=== PATIENT | female | born 1950 | race African-American/Black ===

== ENCOUNTER 2018-01-03 05:51 | Observation (INO) | payer OTHER, MEDICAID ==
[2018-01-03] VITALS (7 sets, daily range): BP systolic 136–175; BP diastolic 65–78; PULSE 63–84; RESP 17–20; TEMP 97.6–101.1; O2SAT 95–100
[~2018-01-03] VITALS: Ht 167.6 cm; Wt 65.0 kg
[~2018-01-03 05:51] MED LIST: CLIN150 PO; LORTA5 PO
[2018-01-03] MEDS ORDERED: AMOXICILLIN/CLAVULANATE K 875 MG TAB PO ONE (06:15)
[2018-01-03] MEDS ORDERED: DEXAMETHASONE SOD PHOS 20 MG/5 ML VIAL IV PUSH ONE (06:15)
[2018-01-03] MEDS ORDERED: SODIUM CHLOR 0.9% 1000 ML INJ 1,000 ML IV ONE (06:15)
[2018-01-03] MEDS ORDERED: IBUPROFEN 800 MG TAB PO ONE (06:15)
--- NOTE | 2018-01-03 06:23 | PD ---
HPI Chief Complaint: ENT Complaint Time Seen by Provider: 06:02 Travel History International Travel<30 days: No Contact w/Intl Traveler<30days: No Traveled to known affect area: No History of Present Illness HPI Patient is a 67-year-old female presenting to the emergency department for evaluation of a sore throat. Patient states it started 3 days ago, she has been using [id number] throat lozenges and taking Tylenol. Patient states that it is hard to swallow but denies any dysphasia or drooling. She denies any shortness of breath, chest pain, abdominal pain, nausea, vomiting. Symptom onset was gradual, symptoms are moderate in nature. No alleviating factors. Patient denies any significant past medical history. PFS Past Medical History Medical History: Denies Significant Hx Diminished Hearing: No Immunizations Current: Yes Tetanus Vaccination: Unknown Influenza Vaccination: No Menopausal: Yes Past Surgical History Surgical History: No Previous Surgery Social History Alcohol Use: No Tobacco Use: Yes (chewing tobacco daily) Substance Use: No Allergies-Medications (Allergen,Severity, Reaction): Coded Allergies: No Known Allergies (Verified , 04/21/15) Reported Meds & Prescriptions Reported Meds & Active Scripts Active No Active Prescriptions or Reported Medications Review of Systems Except as stated in HPI: all other systems reviewed are Neg General / Constitutional: Positive: Fever HENT: Positive: Sore Throat Cardiovascular: No: Chest Pain or Discomfort Respiratory: No: Shortness of Breath Gastrointestinal: No: Nausea, Vomiting, Dysphagia Musculoskeletal: No: Myalgias Physical Exam Narrative GENERAL: Well-developed, well-nourished, alert elderly female. SKIN: Warm and dry. HEAD: Atraumatic. Normocephalic. EYES: Pupils equal and round. No scleral icterus. No injection or drainage. ENT: No nasal bleeding or discharge. Mucous membranes pink and moist. Submandibular lymphadenopathy noted. 1+ tonsillar hypertrophy bilaterally with exudates and erythema noted. Uvula is midline, airway is patent. NECK: Trachea midline. No JVD. CARDIOVASCULAR: Regular rate and rhythm. RESPIRATORY: No accessory muscle use. Clear to auscultation. Breath sounds equal bilaterally. GASTROINTESTINAL: Abdomen soft, non-tender, nondistended. Hepatic and splenic margins not palpable. MUSCULOSKELETAL: Extremities without clubbing, cyanosis, or edema. No obvious deformities. NEUROLOGICAL: Awake and alert. No obvious cranial nerve deficits. Motor grossly within normal limits. Five out of 5 muscle strength in the arms and legs. Normal speech. PSYCHIATRIC: Appropriate mood and affect; insight and judgment normal. Data Data Last Documented VS Vital Signs Date Time Temp Pulse Resp B/P (MAP) Pulse Ox O2 Delivery O2 Flow Rate FiO2 01/03/18 05:57 101.1 84 20 175/78 (110) 97 Room Air Orders Orders Group A Rapid Strep Screen (01/03/18 06:06) Soft Tissue Neck (01/03/18 06:06) Ibuprofen (Motrin) (01/03/18 06:15) Amoxicil-Clavulanate (Augmentin) (01/03/18 06:15) Sodium Chlor 0.9% 1000 Ml Inj (Ns 1000 M (01/03/18 06:15) Dexamethasone Inj (Decadron Inj) (01/03/18 06:15) Complete Blood Count With Diff (01/03/18 06:54) Comprehensive Metabolic Panel (01/03/18 06:54) Ct Soft Tiss Neck W Iv Cont (01/03/18 ) MDM Medical Decision Making Medical Screen Exam Complete: Yes Emergency Medical Condition: Yes Interpretation(s) Vital Signs Date Time Temp Pulse Resp B/P (MAP) Pulse Ox O2 Delivery O2 Flow Rate FiO2 01/03/18 05:57 101.1 84 20 175/78 (110) 97 Room Air Differential Diagnosis Viral syndrome versus strep pharyngitis versus peritonsillar abscess versus other Narrative Course Patient is a 67-year-old female presenting to the emergency room for evaluation of a sore throat. On exam patient has exudates and erythema on bilateral tonsils. Her airway is patent. She has a fever otherwise her vital signs are stable. Patient will be given dexamethasone, IV fluids, ibuprofen and Augmentin at this time. Will obtain an x-ray of the soft tissues of her neck. Will reassess. X-ray of the neck shows soft tissue density identified within the oropharynx, possibly enlarged tonsils extending down to the dislocation and direct visualization suggested. We will obtain a CT of the soft tissues of the neck with IV contrast, CBC and CMP is ordered. Care of patient transferred Jasmin traciets PA the end of my shift, she will determine patient's disposition. Scripts No Active Prescriptions or Reported Meds Alba Greenfield January 03, 2018 06:23
--- NOTE | 2018-01-03 06:47 | RADRPT ---
EXAM DATE: 01/03/2018 6:42 AM EDT AGE/SEX: 67 years / Female INDICATIONS: Sore throat for three days making swallowing painful. CLINICAL DATA: This is the patient's initial encounter. Patient reports that signs and symptoms have been present for 3 days and indicates a pain score of 6/10. MEDICAL/SURGICAL HISTORY: None. None. COMPARISON: No prior exams available for comparison. FINDINGS: Soft tissue density is seen on the lateral projection within the oropharynx above the [place] lecula may be enlarged tonsils extending down to dislocation. The epiglottis and aryepiglottic folds appear intact. There is no prevertebral swelling. CONCLUSION: Soft tissue density identified within the oropharynx possibly enlarged tonsils extending down to this location and direct visualization is suggested. Electronically signed by: Nuria Gao MD 01/03/2018 6:45 AM EDT
[2018-01-03 07:32] LABS: AUTOMATED NEUTROPHIL # 10.3 TH/MM3 (1.8-7.7); BASOPHIL % 0.4 % (0.0-2.0); EOSINOPHIL % 0.3 % (0.0-4.0); HEMATOCRIT 37.6 % (35.0-46.0); HEMOGLOBIN 12.9 GM/DL (11.6-15.3); LYMPH % 9.6 % (9.0-44.0); LYMPHOCYTE # 1.2 TH/MM3 (1.0-4.8); MEAN CELL VOLUME 88.5 FL (80.0-100.0); MEAN CORPUSCULAR HEMOGLOBIN 30.3 PG (27.0-34.0); MEAN CORPUSCULAR HGB CONC 34.3 % (32.0-36.0); NEUT % 81.7 % (16.0-70.0); PLATELET COUNT 182 TH/MM3 (150-450); RED BLOOD COUNT 4.24 MIL/MM3 (4.00-5.30); WHITE BLOOD COUNT 12.6 TH/MM3 (4.0-11.0)
[2018-01-03 07:43] LABS: ALBUMIN 2.9 GM/DL (3.4-5.0); ALT (GPT) 17 U/L (10-53); AST (GOT) 13 U/L (15-37); BLOOD UREA NITROGEN 10 MG/DL (7-18); CHLORIDE 106 MEQ/L (98-107); CREATININE 1.06 MG/DL (0.50-1.00); GLOMERULAR FILTRATION RATE 63 ML/MIN (>89); GLUCOSE,RANDOM 139 MG/DL (74-106); SODIUM (NA) 139 MEQ/L (136-145)
[2018-01-03 07:46] LABS: ALKALINE PHOSPHATASE 72 U/L (45-117); TOTAL BILIRUBIN ADULT 0.5 MG/DL (0.2-1.0); TOTAL PROTEIN 7.2 GM/DL (6.4-8.2)
[2018-01-03] MEDS ORDERED: IOHEXOL 350 MG/ML 10 ML VIAL (for RAD DIAG) IVCONTRAST ONE (08:27)
--- NOTE | 2018-01-03 08:44 | RADRPT ---
EXAM DATE: 01/03/2018 8:30 AM EDT AGE/SEX: 67 years / Female INDICATIONS: Sore throat, evaluate for abscess. CLINICAL DATA: This is the patient's initial encounter. Patient reports that signs and symptoms have been present for 3 days and indicates a pain score of 4/10. MEDICAL/SURGICAL HISTORY: None. None. RADIATION DOSE: 16.27 CTDI (mGy) COMPARISON: [facility] – [place], CT SOFT TISSUE NECK W CONTRAST, 04/21/2015. . TECHNIQUE: Helical acquisition was performed using a multirow detector CT scanner during the adminis tration of 50 ml Omnipaque 350 (iohexol) nonionic water-soluble contrast as a single exam dose. Usi ng automated exposure control and adjustment of the mA and/or kV according to patient size, radiation dose was kept as low as reasonably achievable to obtain optimal diagnostic quality images. FINDINGS: Nasopharynx: The nasopharyngeal airway has a normal configuration. No mucosal thickening or mass is seen. Oropharynx: There is a mass in the right peritonsillar region measuring 2.6 x 2.1 cm. Minimal fullne ss in the right vallecula. Larynx: The supraglottic, glottic, and infraglottic structures are intact. Parapharyngeal: The parapharyngeal space is intact. Salivary Glands: The parotid and submandibular glands are intact. Lymph Nodes: Enlarged lymph node submandibular region just posterior to the right submandibular glan d measuring 1.9 x 1.3 cm Thyroid: Homogeneous enhancement without evidence of nodule. Bones: Unremarkable. CONCLUSION: 1. Soft tissue prominence in the right peritonsillar region measuring 2.6 x 2.1 cm. Direct inspectio n/biopsy may be warranted. 2. Prominent lymph node in the right submandibular region measuring 1.9 x 1.3 cm. Electronically signed by: Rafael Silva MD 01/03/2018 8:42 AM EDT
--- NOTE | 2018-01-03 09:07 | PD ---
Physical Exam Date Seen by Provider: January 03, 2018 Narrative 67-year-old female presents emergency department complaining of sore throat for 3 days. I took this patient from the upgoing provider, BARBARA Willis. Upon reevaluation, patient says that she feels better. Note that she was given ibuprofen and Augmentin. Her CT neck showed some significant protrusion into her airway but patient continues denies shortness of breath or difficulty breathing. Says that she feels her throat is swollen. Reassessed this patient after initial medications and she says she feels better in terms of pain. Labs demonstrate mild leukocytosis, negative rapid strep. BUN/Cr I discussed this with my attending, Dr. Cervantes who recommended ENT consult and possible admission. I discussed this case with Dr. Thrasher, ear nose and throat, and based off of history and physical and CT findings recommended admission with Rocephin 2 g and clindamycin 900mg administered now. In addition, he recommended Rocephin 1 g every 12 hours. He did not make any further recommendations regarding administering more steroids. Pt may require tonsillectomy based off of course in the next [address] Zelaya accepted this patient for admission as observation. Data Data Last Documented VS Vital Signs Date Time Temp Pulse Resp B/P (MAP) Pulse Ox O2 Delivery O2 Flow Rate FiO2 01/03/18 07:39 98.4 76 17 138/68 (91) 100 Room Air Orders Orders Group A Rapid Strep Screen (01/03/18 06:06) Soft Tissue Neck (01/03/18 06:06) Ibuprofen (Motrin) (01/03/18 06:15) Amoxicil-Clavulanate (Augmentin) (01/03/18 06:15) Sodium Chlor 0.9% 1000 Ml Inj (Ns 1000 M (01/03/18 06:15) Dexamethasone Inj (Decadron Inj) (01/03/18 06:15) Complete Blood Count With Diff (01/03/18 06:54) Comprehensive Metabolic Panel (01/03/18 06:54) Ct Soft Tiss Neck W Iv Cont (01/03/18 ) Strep Culture (Group A) (01/03/18 06:26) Iohexol 350 Inj (Omnipaque 350 Inj) (01/03/18 08:27) Ceftriaxone Inj (Rocephin Inj) (01/03/18 10:00) Clindamycin Inj (Cleocin Inj) (01/03/18 10:00) Admit Order (Ed Use Only) (01/03/18 09:52) Labs Laboratory Tests Test 01/03/18 07:20 White Blood Count 12.6 TH/MM3 Red Blood Count 4.24 MIL/MM3 Hemoglobin 12.9 GM/DL Hematocrit 37.6 % Mean Corpuscular Volume 88.5 FL Mean Corpuscular Hemoglobin 30.3 PG Mean Corpuscular Hemoglobin Concent 34.3 % Red Cell Distribution Width 14.0 % Platelet Count 182 TH/MM3 Mean Platelet Volume 9.0 FL Neutrophils (%) (Auto) 81.7 % Lymphocytes (%) (Auto) 9.6 % Monocytes (%) (Auto) 8.0 % Eosinophils (%) (Auto) 0.3 % Basophils (%) (Auto) 0.4 % Neutrophils # (Auto) 10.3 TH/MM3 Lymphocytes # (Auto) 1.2 TH/MM3 Monocytes # (Auto) 1.0 TH/MM3 Eosinophils # (Auto) 0.0 TH/MM3 Basophils # (Auto) 0.0 TH/MM3 CBC Comment DIFF FINAL Differential Comment Blood Urea Nitrogen 10 MG/DL Creatinine 1.06 MG/DL Random Glucose 139 MG/DL Total Protein 7.2 GM/DL Albumin 2.9 GM/DL Calcium Level 8.0 MG/DL Alkaline Phosphatase 72 U/L Aspartate Amino Transf (AST/SGOT) 13 U/L Alanine Aminotransferase (ALT/SGPT) 17 U/L Total Bilirubin 0.5 MG/DL Sodium Level 139 MEQ/L Potassium Level 3.9 MEQ/L Chloride Level 106 MEQ/L Carbon Dioxide Level 22.0 MEQ/L Anion Gap 11 MEQ/L Estimat Glomerular Filtration Rate 63 ML/MIN [facility] Supervised Visit with GARDENIA: Yes Diagnosis Primary Impression: Peritonsillar cellulitis Admitting Information Admitting Physician Requests: Observation Patient Instructions: General Instructions Departure Forms: Tests/Procedures Scripts No Active Prescriptions or Reported Meds Cassidy Romero January 03, 2018 09:07
--- NOTE | 2018-01-03 09:56 | PD ---
Physical Exam Date Seen by Provider: January 03, 2018 Data Data Last Documented VS Vital Signs Date Time Temp Pulse Resp B/P (MAP) Pulse Ox O2 Delivery O2 Flow Rate FiO2 01/03/18 07:39 98.4 76 17 138/68 (91) 100 Room Air Orders Orders Group A Rapid Strep Screen (01/03/18 06:06) Soft Tissue Neck (01/03/18 06:06) Ibuprofen (Motrin) (01/03/18 06:15) Amoxicil-Clavulanate (Augmentin) (01/03/18 06:15) Sodium Chlor 0.9% 1000 Ml Inj (Ns 1000 M (01/03/18 06:15) Dexamethasone Inj (Decadron Inj) (01/03/18 06:15) Complete Blood Count With Diff (01/03/18 06:54) Comprehensive Metabolic Panel (01/03/18 06:54) Ct Soft Tiss Neck W Iv Cont (01/03/18 ) Strep Culture (Group A) (01/03/18 06:26) Iohexol 350 Inj (Omnipaque 350 Inj) (01/03/18 08:27) Ceftriaxone Inj (Rocephin Inj) (01/03/18 10:00) Clindamycin Inj (Cleocin Inj) (01/03/18 10:00) Admit Order (Ed Use Only) (01/03/18 09:52) Labs Laboratory Tests Test 01/03/18 07:20 White Blood Count 12.6 TH/MM3 Red Blood Count 4.24 MIL/MM3 Hemoglobin 12.9 GM/DL Hematocrit 37.6 % Mean Corpuscular Volume 88.5 FL Mean Corpuscular Hemoglobin 30.3 PG Mean Corpuscular Hemoglobin Concent 34.3 % Red Cell Distribution Width 14.0 % Platelet Count 182 TH/MM3 Mean Platelet Volume 9.0 FL Neutrophils (%) (Auto) 81.7 % Lymphocytes (%) (Auto) 9.6 % Monocytes (%) (Auto) 8.0 % Eosinophils (%) (Auto) 0.3 % Basophils (%) (Auto) 0.4 % Neutrophils # (Auto) 10.3 TH/MM3 Lymphocytes # (Auto) 1.2 TH/MM3 Monocytes # (Auto) 1.0 TH/MM3 Eosinophils # (Auto) 0.0 TH/MM3 Basophils # (Auto) 0.0 TH/MM3 CBC Comment DIFF FINAL Differential Comment Blood Urea Nitrogen 10 MG/DL Creatinine 1.06 MG/DL Random Glucose 139 MG/DL Total Protein 7.2 GM/DL Albumin 2.9 GM/DL Calcium Level 8.0 MG/DL Alkaline Phosphatase 72 U/L Aspartate Amino Transf (AST/SGOT) 13 U/L Alanine Aminotransferase (ALT/SGPT) 17 U/L Total Bilirubin 0.5 MG/DL Sodium Level 139 MEQ/L Potassium Level 3.9 MEQ/L Chloride Level 106 MEQ/L Carbon Dioxide Level 22.0 MEQ/L Anion Gap 11 MEQ/L Estimat Glomerular Filtration Rate 63 ML/MIN [facility] Medical Record Reviewed: Yes Supervised Visit with GARDENIA: Yes Narrative Course I, Dr. Cervantes, have reviewed the advance practice practitioner's documentation and am in agreement, met with the patient face to face, made the diagnosis, and the medical decision making was done by me. *My assessment and Findings: Patient is a 67-year-old female presents the emergency room complaints of sore throat for the past 3 days. Patient reports that she has been finding it difficult for her to swallow, patient with no drooling, no airway compromise at this time. Patient with no fever chills, no other complaints. CBC & BMP Diagram 01/03/18 07:20 Total Protein 7.2, Albumin 2.9 L, Calcium Level 8.0 L, Alkaline Phosphatase 72, Aspartate Amino Transf (AST/SGOT) 13 L, Alanine Aminotransferase (ALT/SGPT) 17, Total Bilirubin 0.5 Last Impressions Soft Tissue Neck X-Ray 01/03/18 0606 Signed Impressions: CONCLUSION: Soft tissue density identified within the oropharynx possibly enlarged tonsils extending down to this location and direct visualization is suggested. Neck CT 01/03/18 0000 Signed Impressions: CONCLUSION: 1. Soft tissue prominence in the right peritonsillar region measuring 2.6 x 2. 1 cm. Direct inspection/biopsy may be warranted. 2. Prominent lymph node in the right submandibular region measuring 1.[address] of the neck shows that there is a soft tissue prominence in the right peritonsillar region measuring 2.6 x 2.1 cm, case was reviewed with Dr. Thrasher ( ENT) who recommends IV antibiotics as well as IV steroids as well as 24 hour observation status. Patient with no airway compromise at this time, she will be admitted for observation. Patient agreeable with plan of care. Patient Instructions: General Instructions Departure Forms: Tests/Procedures Scripts No Active Prescriptions or Reported Meds Danay Cervantes DO January 03, 2018 09:56
[2018-01-03] MEDS ORDERED: CLINDAMYCIN PHOS 900 MG/6 ML VIAL IM ONE (10:00)
[2018-01-03] MEDS ORDERED: cefTRIAXone INJ 2,000 MG in SODIUM CHLORIDE 0.9% INJ 100 ML IV ONE (10:00)
[2018-01-03] MEDS ORDERED: SODIUM CHLORIDE 0.9% FLUSH 10 ML FLUSH IV FLUSH PRN (10:15)
[2018-01-03] MEDS ORDERED: LACTULOSE SYRUP 20 GM/30 ML CUP PO PRN (10:15)
[2018-01-03] MEDS ORDERED: MAGNESIUM HYDROXIDE SUSP 30 ML CUP PO PRN (10:15)
[2018-01-03] MEDS ORDERED: SENNOSIDES 8.6 MG TAB PO PRN (10:15)
[2018-01-03] MEDS ORDERED: BISACODYL 10 MG SUPP RECTAL PRN (10:15)
[2018-01-03] MEDS ORDERED: NALOXONE HCL 0.4 MG/ML AMP IV PUSH PRN (10:15)
[2018-01-03] MEDS ORDERED: ACETAMINOPHEN 325 MG TAB PO PRN (10:15)
--- NOTE | 2018-01-03 11:15 | HHI.HP ---
HPI Service [facility] Primary Care Physician Yanna Lou MD Admission Diagnosis peritonsillar edema, airway monitoring Diagnoses: Chief Complaint: Odynophagia Travel History International Travel<30 Days: No Contact w/Intl Traveler <30 Da: No Traveled to Known Affected Are: No Sepsis Criteria SIRS Criteria (2 or more): Temp > 100.9 or < 96.8, WBC > 02216, < 4000 or > 10 % bands Sepsis Criteria (SIRS+source): Infect source susp/known Criteria Outcome: Meets sepsis criteria History of Present Illness This is a 67-year-old female who presented to the emergency department complaining of sore throat for 3 days. States she has pain upon swallowing associated with intermittent fever and chills. No choking, drooling of saliva and shortness of breath. Next CT shows soft tissue prominence in the right peritonsillar region. ENT recommended intravenous antibiotic for 24 hours. She also received IV Decadron. All other systems reviewed negative Review of Systems Except as stated in HPI: all other systems reviewed are Neg Past Family Social History Past Medical History Denies Past Surgical History Denies Reported Medications none Allergies: Coded Allergies: No Known Allergies (Verified Allergy, Unknown, 01/03/18) Family History Bone cancer and coronary artery disease Social History Does not drink or use illicit drugs. Chews tobacco Physical Exam Vital Signs Vital Signs Date Time Temp Pulse Resp B/P (MAP) Pulse Ox O2 Delivery O2 Flow Rate FiO2 01/03/18 07:39 98.4 76 17 138/68 (91) 100 Room Air 01/03/18 05:57 101.1 84 20 175/78 (110) 97 Room Air Physical Exam GENERAL: This is a well-nourished, well-developed patient, in no apparent distress. She looks weak SKIN: No rashes, ecchymoses or lesions. Cool and dry. HEAD: Atraumatic. Normocephalic. No temporal or scalp tenderness. EYES: Pupils equal round and reactive. Extraocular motions intact. No scleral icterus. No injection or drainage. ENT: Nose without bleeding, purulent drainage or septal hematoma. Bilateral tonsillar hypertrophy with erythema. Exudates noted in the right tonsils. Uvula midline. Airway patent. NECK: Trachea midline. No JVD. Has right submandibular lymphadenopathy. Supple , nontender, no meningeal signs. CARDIOVASCULAR: Regular rate and rhythm without murmurs, gallops, or rubs. RESPIRATORY: Clear to auscultation. Breath sounds equal bilaterally. No wheezes , rales, or rhonchi. GASTROINTESTINAL: Abdomen soft, non-tender, nondistended. No guarding. MUSCULOSKELETAL: Extremities without clubbing, cyanosis, or edema. No joint tenderness, effusion, or edema noted. No calf tenderness. Negative Homans sign bilaterally. NEUROLOGICAL: Awake and alert. Cranial nerves II through XII intact. Motor and sensory grossly within normal limits. Five out of 5 muscle strength in all muscle groups. Normal speech. Laboratory Laboratory Tests Test 01/03/18 07:20 White Blood Count 12.6 Red Blood Count 4.24 Hemoglobin 12.9 Hematocrit 37.6 Mean Corpuscular Volume 88.5 Mean Corpuscular Hemoglobin 30.3 Mean Corpuscular Hemoglobin Concent 34.3 Red Cell Distribution Width 14.0 Platelet Count 182 Mean Platelet Volume 9.0 Neutrophils (%) (Auto) 81.7 Lymphocytes (%) (Auto) 9.6 Monocytes (%) (Auto) 8.0 Eosinophils (%) (Auto) 0.3 Basophils (%) (Auto) 0.4 Neutrophils # (Auto) 10.3 Lymphocytes # (Auto) 1.2 Monocytes # (Auto) 1.0 Eosinophils # (Auto) 0.0 Basophils # (Auto) 0.0 CBC Comment DIFF FINAL Differential Comment Blood Urea Nitrogen 10 Creatinine 1.06 Random Glucose 139 Total Protein 7.2 Albumin 2.9 Calcium Level 8.0 Alkaline Phosphatase 72 Aspartate Amino Transf (AST/SGOT) 13 Alanine Aminotransferase (ALT/SGPT) 17 Total Bilirubin 0.5 Sodium Level 139 Potassium Level 3.9 Chloride Level 106 Carbon Dioxide Level 22.0 Anion Gap 11 Estimat Glomerular Filtration Rate 63 Date/Time Source Procedure Growth Status 01/03/18 06:26 Throat Group A Streptococcus Screen Pending Received Result Diagram: 01/03/18 0720 01/03/18 0720 Imaging Last Impressions Soft Tissue Neck X-Ray 01/03/18 0606 Signed Impressions: CONCLUSION: Soft tissue density identified within the oropharynx possibly enlarged tonsils extending down to this location and direct visualization is suggested. Neck CT 01/03/18 0000 Signed Impressions: CONCLUSION: 1. Soft tissue prominence in the right peritonsillar region measuring 2.6 x 2. 1 cm. Direct inspection/biopsy may be warranted. 2. Prominent lymph node in the right submandibular region measuring 1.9 x 1.3 cm. Caprini VTE Risk Assessment Caprini VTE Risk Assessment: No/Low Risk (score <= 1) Caprini Risk Assessment Model Point Value = 1 Point Value = 2 Point Value = 3 Point Value = 5 Age 41-60 Minor surgery BMI > 25 kg/m2 Swollen legs Varicose veins or History of unexplained or recurrent spontaneous Oral contraceptives or hormone replacement Sepsis (< 1 month) Serious lung disease, including pneumonia (< 1 month) Abnormal pulmonary function Acute myocardial infarction Congestive heart failure (< 1 month) History of inflammatory bowel disease Medical patient at bed rest Age 61-74 Arthroscopic surgery Major open surgery (> 45 min) Laparoscopic surgery (> 45 min) Malignancy Confined to bed (> 72 hours) Immobilizing plaster cast Central venous access Age >= 75 History of VTE Family history of VTE Factor V Leiden Prothrombin [id number] Lupus anticoagulant Anticardiolipin antibodies Elevated serum homocysteine Heparin-induced thrombocytopenia Other congenital or acquired thrombophilia Stroke (< 1 month) Elective arthroplasty Hip, pelvis, or leg fracture Acute spinal cord injury (< 1 month) Prophylaxis Regimen Total Risk Factor Score Risk Level Prophylaxis Regimen 0-1 Low Early ambulation 2 Moderate Order ONE of the following: *Sequential Compression Device (SCD) *Heparin 5000 units SQ BID 3-4 Higher Order ONE of the following medications: *Heparin 5000 units SQ TID *Enoxaparin/Lovenox 40 mg SQ daily (WT < 150 kg, CrCl > 30 mL/min) *Enoxaparin/Lovenox 30 mg SQ daily (WT < 150 kg, CrCl > 10-29 mL/min) *Enoxaparin/Lovenox 30 mg SQ BID (WT < 150 kg, CrCl > 30 mL/min) AND/OR *Sequential Compression Device (SCD) 5 or more Highest Order ONE of the following medications: *Heparin 5000 units SQ TID (Preferred with Epidurals) *Enoxaparin/Lovenox 40 mg SQ daily (WT < 150 kg, CrCl > 30 mL/min) *Enoxaparin/Lovenox 30 mg SQ daily (WT < 150 kg, CrCl > 10-29 mL/min) *Enoxaparin/Lovenox 30 mg SQ BID (WT < 150 kg, CrCl > 30 mL/min) AND *Sequential Compression Device (SCD) Assessment and Plan Assessment and Plan This is a 67-year-old female who presented to the emergency department complaining of sore throat for 3 days. States she has pain upon swallowing associated with intermittent fever and chills. No choking, drooling of saliva and shortness of breath. Next CT shows soft tissue prominence in the right peritonsillar region. ENT recommended intravenous antibiotic for 24 hours. Acute pharyngitis with odynophagia, fever and chills. She meets criteria for sepsis. Rapid strep negative. ENT recommended antibiotics for 24 hours and will continue Rocephin 1 g IV every 12 hours and clindamycin 900 mg every 8 hours. Will also continue steroids by mouth. Follow cultures Elevated creatinine. Gentle IV hydration Hyperglycemia. Obtain fasting glucose in the morning DVT prophylaxis with SCD and early ambulation Discussed Condition With Patient and family Rich Zelaya MD January 03, 2018 11:15
[2018-01-03] MEDS: DEXAMETHASONE 4 MG TAB PO SCH ×2 (13:30→17:35)
[2018-01-03] MEDS: SODIUM CHLOR 0.9% 1000 ML INJ 1,000 ML IV SCH (13:31)
[2018-01-03] MEDS: CLINDAMYCIN 900 MG/NS PREMIX 50 ML IV SCH (17:35)
[2018-01-03] MEDS: cefTRIAXone INJ 2,000 MG in SODIUM CHLORIDE 0.9% INJ 100 ML IV SCH (20:09)
[2018-01-03] MEDS: DOCUSATE SODIUM 50 MG/SENNA 8.6 MG TAB PO SCH (20:10)
[2018-01-03] MEDS: SODIUM CHLORIDE 0.9% FLUSH 10 ML FLUSH IV FLUSH SCH (20:10)
[2018-01-04] MEDS: DEXAMETHASONE 4 MG TAB PO SCH ×2 (00:43→06:32)
[2018-01-04] MEDS: CLINDAMYCIN 900 MG/NS PREMIX 50 ML IV SCH ×2 (03:43→10:47)
[2018-01-04] MEDS: SODIUM CHLOR 0.9% 1000 ML INJ 1,000 ML IV SCH ×2 (03:43→08:17)
[2018-01-04 04:14] VITALS: BP 116/56; PULSE 69; RESP 16; TEMP 98.5; O2SAT 99
[2018-01-04 06:50] LABS: BICARBONATE 22.9 MEQ/L (21.0-32.0); CALCIUM 8.8 MG/DL (8.5-10.1); CREATININE 1.08 MG/DL (0.50-1.00)
[2018-01-04 07:21] VITALS: BP 138/78; PULSE 64; RESP 16; TEMP 97.9; O2SAT 96
[2018-01-04] MEDS: DOCUSATE SODIUM 50 MG/SENNA 8.6 MG TAB PO SCH (08:18)
[2018-01-04] MEDS: cefTRIAXone INJ 2,000 MG in SODIUM CHLORIDE 0.9% INJ 100 ML IV SCH (08:18)
[2018-01-04] MEDS: SODIUM CHLORIDE 0.9% FLUSH 10 ML FLUSH IV FLUSH SCH (08:18)
--- NOTE | 2018-01-04 09:27 | HHI.PR ---
Subjective Remarks Follow up for acute pharyngitis/tonsillitis. The patient reports mild improvement of throat pain/swelling overnight, however still with some odynophagia, denies dysphagia. She is tolerating oral intake. She reports nonproductive cough. She reports chills and sweats overnight. She reports she lives with 5 grandchildren ages 10-14, and 2 of them have been sick with upper respiratory infections recently. She does not feel quite ready for discharge. Denies any chest pain, shortness of breath, or abdominal complaints. Objective Vitals Vital Signs Date Time Temp Pulse Resp B/P (MAP) Pulse Ox O2 Delivery O2 Flow Rate FiO2 01/04/18 07:21 97.9 64 16 138/78 (98) 96 01/04/18 04:14 98.5 69 16 116/56 (76) 99 01/03/18 23:03 98.4 70 17 141/65 (90) 95 01/03/18 19:48 71 17 155/74 (101) 96 01/03/18 17:05 98.2 70 18 138/65 (89) 98 01/03/18 12:24 97.6 63 20 143/70 (94) 96 01/03/18 11:11 72 17 136/71 (92) 99 Room Air I/O 01/03/18 01/03/18 01/03/18 01/04/18 01/04/18 01/04/18 07:00 15:00 23:00 07:00 15:00 23:00 Intake Total 100 ml 1100 ml Balance 100 ml 1100 ml Intake IV Total 100 ml 1100 ml Result Diagram: 01/03/18 0720 01/04/18 0439 Imaging Last Impressions Soft Tissue Neck X-Ray 01/03/18 0606 Signed Impressions: CONCLUSION: Soft tissue density identified within the oropharynx possibly enlarged tonsils extending down to this location and direct visualization is suggested. Neck CT 01/03/18 0000 Signed Impressions: CONCLUSION: 1. Soft tissue prominence in the right peritonsillar region measuring 2.6 x 2. 1 cm. Direct inspection/biopsy may be warranted. 2. Prominent lymph node in the right submandibular region measuring 1.9 x 1.3 cm. Objective Remarks GENERAL: Well-nourished, well-developed pleasant female patient in NAD. SKIN: Warm and dry. No rash. HEENT: Normocephalic. Atraumatic. Pupils equal and round. Mucous membranes pink and moist. Bilateral tonsillar hypertrophy, worse on the right with white exudates on right tonsil. Uvula midline. NECK: Supple. Trachea midline. +right submandibular lymphadenopathy. CARDIOVASCULAR: Regular rate and rhythm. No murmur appreciated. RESPIRATORY: No accessory muscle use. Clear to auscultation. Breath sounds equal bilaterally. GASTROINTESTINAL: Abdomen soft, non-tender, nondistended. Normoactive bowel sounds x4. MUSCULOSKELETAL: No obvious deformities. Extremities without clubbing, cyanosis , or edema. NEUROLOGICAL: Awake and alert. No obvious cranial nerve deficits. Motor grossly within normal limits. Moving all extremities spontaneously. Normal speech. PSYCHIATRIC: Appropriate mood and affect; insight and judgment normal. Procedures None. Medications and IVs Current Medications Medications (Trade) Dose Ordered Sig/Alfredo Route Start Time Stop Time Status Last Admin Ceftriaxone Sodium 2000 mg/ Sodium Chloride 100 ml @ 200 mls/hr Q12H IV 01/03/18 21:00 01/04/18 08:18 Clindamycin/ Sodium Chloride 50 ml @ 100 mls/hr Q8H IV 01/03/18 18:00 01/04/18 03:43 Sodium Chloride 1,000 ml @ 60 mls/hr [id number] IV 01/03/18 10:45 01/04/18 08:17 (NS Flush) 2 ml UNSCH PRN IV FLUSH 01/03/18 10:15 (NS Flush) 2 ml BID IV FLUSH 01/03/18 21:00 01/03/18 20:10 (Tylenol) 650 mg Q6H PRN PO 01/03/18 10:15 (Narcan Inj) 0.4 mg UNSCH PRN IV PUSH 01/03/18 10:15 (Daina-Colace) 1 tab BID PO 01/03/18 21:00 01/04/18 08:18 (Milk Of Magnesia Liq) 30 ml Q12H PRN PO 01/03/18 10:15 (Senokot) 17.2 mg Q12H PRN PO 01/03/18 10:15 (Dulcolax Supp) 10 mg DAILY PRN RECTAL 01/03/18 10:15 (Lactulose Liq) 30 ml DAILY PRN PO 01/03/18 10:15 A/P Assessment and Plan 67-year-old female who presented to the ED complaining of sore throat for 3 days , with odynophagia and intermittent fever and chills. No choking, drooling of saliva or dyspnea. Sepsis with Acute Pharyngitis/Tonsillitis: with associated odynophagia, fever and chills. Meets criteria for sepsis with fever Tmax 101.1, WBC 12.6K, source- tonsillitis/pharyngitis -Rapid strep negative in the ED. -Neck CT reviewed, shows soft tissue prominence right peritonsillar region 2.6x2.1cm; prominent lymph node right submandibular region 1.9x1.3cm -ENT contacted from the ED, recommended admission for IV antibiotics x24 hours and steroids -Continue antibiotics with IV Rocephin 2G q12h and IV Clinda 900 mg q8h. -Continue steroids with Decadron 4mg po q6h -Follow cultures -Mild improvement overnight, continue to monitor Acute Renal Insufficiency vs CKD stage II: Cr 1.06, previously 0.89 in 2014. Unclear patient's recent baseline. -Give gentle IV hydration -repeat BMP with Cr 1.08, possible patient's baseline -avoid nephrotoxins -f/up with PCP Hyperglycemia: suspect secondary to steroids. No reported hx of diabetes. -Fasting glucose 209 -Check HgbA1c DVT prophylaxis with SCD and early ambulation Discharge Planning 1320hrs: Patient evaluated by ENT Dr. Thrasher, symptoms improved, cleared for discharge home. Dr. Thrasher gave prescription for Augmentin. Patient comfortable going home, will discharge. Discharge patient to home Condition on discharge: Stable Regular Diet as tolerated Ad Michelle activity Rx written: Augmentin 1tab po bid [id number] Follow-up with primary care physician Dr. Lou within 2-3 days Clara Johnson PA-C January 04, 2018 09:27
[2018-01-04 11:05] VITALS: BP 137/67; PULSE 74; RESP 20; TEMP 98.2; O2SAT 96
[2018-01-04] MEDS ORDERED: DEXAMETHASONE 4 MG TAB PO SCH (12:00)
[2018-01-04] MEDS ORDERED: AUGM875T3 PO (13:27)
--- NOTE | 2018-01-04 13:27 | HHI.DCPOC ---
Discharge Care Plan Diagnosis: (1) Peritonsillar cellulitis Goals to Promote Your Health * To prevent worsening of your condition and complications * To maintain your health at the optimal level Directions to Meet Your Goals Take your medications as prescribed Follow your dietary instruction Follow activity as directed Keep your appointments as scheduled Take your immunizations and boosters as scheduled If your symptoms worsen call your PCP, if no PCP go to Urgent Care Center or Emergency Room Smoking is Dangerous to Your Health. Avoid second hand smoke Call the 24-hour hour crisis hotline for domestic abuse at Clara Johnson PA-C January 04, 2018 13:27
--- NOTE | 2018-01-04 13:36 | MB ---
cc: Cuco Thrasher MD, Jose R MD DATE: 01/04/2018 REQUESTING PROVIDER: Dr. Zelaya. REASON FOR ENT CONSULTATION: Right peritonsillar abscess. HISTORY OF PRESENT ILLNESS: Destiny Feliciano is a previously healthy 67-year-old woman. She presented to the emergency room on the morning of 01/03/2018 complaining of a few days of progressive pain in the right side of her throat. A CT scan was obtained which showed a possible 2.6 cm abscess in the right peritonsillar area. The patient reports she is normally in excellent health and trouble free, but for the last few months she has had 5 grandchildren living in her home, ages 9-14, and ever since they have been with her, she has had frequent viral type illnesses and sore throat. This is the worst one that is occurring at this time. She has no significant medical history. She states she has never been in the hospital before. Since admission, she has been treated with intravenous Rocephin, clindamycin and a 10 mg injection of Decadron. She states she is very much improved. She is now tolerating a soft diet. She has some mild discomfort left in her right oropharynx. She has never had airway compromise but noted some dysphagia on presentation. She has a history of tobacco use, has been chewing and dipping tobacco since she was 20 years old. ALLERGIES: NO ALLERGIES. PAST MEDICAL HISTORY: No significant medical history. PAST SURGICAL HISTORY: No surgical history. MEDICATIONS: No medications. PHYSICAL EXAMINATION: GENERAL: She is alert and cooperative. VITAL SIGNS: Temperature 98.4, BP 137/67, pulse is 74, respirations 20 and O2 saturation 96% on room air. HEAD: Normocephalic, atraumatic. ORAL CAVITY: Mucous membranes are pink and moist throughout. Teeth are mostly absent. There are a few remaining, which appear to be in good condition. OROPHARYNX: There is right greater than left hypertrophy of tonsils. Both sides show tonsilliths and exudates, but there is no erythema or edema. The right side is not tender to palpation. There is no trismus. NECK: No nodes or masses. Larynx and trachea midline. Normal salivary and thyroid glands. EARS: Normal auricles, ear canals and tympanic membranes. ASSESSMENT: Right peritonsillar cellulitis, improving. PLAN: Discussed these findings today with the patient and the emergency room staff. Recommend that she be discharged today on p.o. Augmentin 875 mg twice a day and I will see her back in 2 or 3 weeks as an outpatient. MD JENNIFER Livingston/KAYLA , 01:19 PM , 01:35 PM
[2018-01-04 17:08] LABS: HEMOGLOBIN A1C 6.1 % (4.3-6.0)
== END 2018-01-04 15:52 | disposition home or self-care (01) ==
LOC: NEPD 05:51 → NEDA 09:53 → NEPHCDU 11:24 → NEPFCDU 16:17
PROVIDERS: ADMIT Family Medicine; ATTEND Family Medicine
DX: A41.9 Sepsis, unspecified organism (principal); J36 Peritonsillar abscess; R79.89 Other specified abnormal findings of blood chemistry; R73.9 Hyperglycemia, unspecified; F17.220 Nicotine dependence, chewing tobacco, uncomplicated
CPT/HCPCS: 70360; 70491; 80048; 80053; 83036; 85025; 87081; 87880; 96361; 96365; 96366; 96375; 99285; G0378; J0696; J1100; J7030; J8540; Q9967